=== PATIENT | male | born 1960 | race Caucasian/White ===

== ENCOUNTER 2020-02-16 11:46 | Emergency (ER) | payer BC, SELFPAY ==
--- NOTE | ~2020-02-16 | XR_ITS ---
EXAMINATION: XR chest 1V portable DATE: 02/16/2020 12:30 INDICATION: Shortness of breath. TECHNIQUE: A single frontal view of the chest was obtained. COMPARISON: Chest 2 views 08/17/2007, chest CT 10/01/2007 FINDINGS: A calcified left lung nodule is consistent with old granulomatous disease. No pleural effus ion or pneumothorax. The heart size is normal. IMPRESSION: 1. No acute cardiopulmonary disease. Reviewed, dictated and finalized at location A.
--- NOTE | ~2020-02-16 | CT_ITS ---
EXAMINATION: CT brain wo con DATE: 02/16/2020 13:17 INDICATION: Headache. TECHNIQUE: Computed tomography (CT) of the head was performed without intravenous contrast. The mA wa s adjusted according to patient size. Iterative reconstruction technique was employed. The dose-lengt h product was 605.33 mGy-cm. COMPARISON: Head CT 10/01/2007 FINDINGS: There is no intracranial hemorrhage, acute infarction, or abnormal intracranial mass lesion . The ventricles are normal in size. There are likely changes of ocular lens replacement surgeries. T here is mild mucosal thickening in the ethmoid sinuses. The mastoid air cells are normal. IMPRESSION: 1. Normal brain. Reviewed, dictated and finalized at location A. IMPRESSION: 1. Normal brain.
[2020-02-16 11:54] VITALS: BP 110/67; PULSE 81; RESP 14; TEMP 37.2; O2SAT 100
[2020-02-16 12:04] VITALS: PULSE 82
--- NOTE | 2020-02-16 12:04 | ECG_ITS ---
Measurements Intervals [place] Rate: 71 P: 74 WI: 135 QRS: 33 QRSD: 98 T: 32 QT: 381 QTc: 417 Interpretive Statements SINUS RHYTHM NORMAL ECG Electronically Signed On 02-16-2020 13:28:34 CDT by Richard Conteh D.O.
[2020-02-16 12:22] LABS: Basophils Percent Auto 0.4 % (0.2-1.2); Eosinophils Absolute Auto 0.1 K/mm3 (0-0.3); Hematocrit 35.9 % (42.0-52.0); Hemoglobin 11.6 g/dL (14.0-18.0); Immature Granulocyte Absolute 0.04 K/mm3 (0.00-0.031); Immature Granulocyte Percent A 0.4 % (0-0.5); Lymphocytes Absolute Auto 0.99 K/mm3 (0.9-3.2); Lymphocytes Percent Auto 9.2 % (18.3-44.2); Mean Corpuscular HGB Conc 32.3 g/dl (32-36); Mean Corpuscular Hemoglobin 29.7 pg (26-34); Mean Corpuscular Volume 92.1 fl (80-100); Monocytes Absolute Auto 1.2 K/mm3 (0.1-0.6); Monocytes Percent Auto 11.4 % (2.6-8.5); Neutrophils Absolute Auto 8.3 K/mm3 (1.3-6.7); Neutrophils Percent Auto 77.6 % (45.5-73.1); Platelet Count Result 479 k/mm3 (150-375); Red Cell Distribution Width 12.8 % (11.5-14.5); White Blood Count 10.7 K/mm3 (4.5-10.0)
[2020-02-16 12:34] LABS: Blood Urea Nitrogen 11 mg/dL (9-20); Calcium 8.7 mg/dL (8.4-10.2); Carbon Dioxide 30 mmol/L (22-30); Chloride 102 mmol/L (98-107); Estimated Glomerular Filt Rate > 60; Glucose 122 mg/dL (75-110); Potassium 4.1 mmol/L (3.4-5.0); Sodium 135 mmol/L (137-145)
[2020-02-16] MEDS: SODIUM CHLORIDE 0.9% IV 1,000 ML 999 ML IV CONT (12:43)
[2020-02-16 12:48] LABS: Alanine Aminotransferase 30 U/L (4-50); Albumin Level 3.2 g/dL (3.5-5.1); Alkaline Phosphatase 72 U/L (38-126); Aspartate Amino Transferase 32 U/L (17-59); Bilirubin,Total 0.3 mg/dL (0.2-1.3)
[2020-02-16] MEDS: KETOROLAC 30 MG/ML VIAL (*BKC) IV PUSH (13:06)
[2020-02-16 13:35] VITALS: BP 113/61; PULSE 65; RESP 22; O2SAT 95
--- NOTE | 2020-02-16 15:06 | ED.GENADULT ---
HPI - General Adult General Chief complaint: Shortness of Breath/Dyspnea Stated complaint: sick for 28 days , milan, fatigue, weakness Time Seen by Provider: 02/16/20 11:56 History of Present Illness HPI narrative: Patient is a 59-year-old male who comes to the ER with multiple issues. Over the last 28 days patient has had several elements have been managed in the outpatient setting. It originally started with several weeks of diarrhea. Brief course of ciprofloxacin which he did not tolerate. Stool studies were negative. He then developed several days of fever. He has not had a fever for the last 10 days. But he has been having bitemporal headache with 17 pound weight loss. He reports no edema to his lower extremities. Most notably over the last 3 days patient has developed a rash predominantly over his back as well as his right lower extremity and left second digit. RLE had large lumps that were red/hot that are starting to improve. Back with maculopapular rash with excoriations, no drainage. No oral lesions. Related Data Home Medications Medication Instructions Recorded Confirmed mometasone [Nasonex] INTRANASAL 02/16/20 Allergies Allergy/AdvReac Type Severity Reaction Status Date / Time No Known Allergies Allergy Unknown Verified 02/16/20 12:02 Review of Systems Review of Systems: All systems reviewed & are unremarkable except as noted in HPI and below Constitutional: Constitutional: Denies chills, Reports fever(s) and Reports weakness ENT: Denies dizziness, Denies nasal congestion and Denies sore throat Cardiovascular: Cardiovascular: Denies chest pain and Denies rapid heart rate Respiratory: Respiratory: Denies cough, Denies dyspnea and Denies wheezing Gastrointestinal: Gastrointestinal: Denies abdominal pain, Reports diarrhea, Denies nausea and Denies vomiting Musculoskeletal: Comments: Lower extremity edema PMFSH Past Medical History Medical History (Updated 02/16/20 @ 15:19 by Vick Christie MD) Lumbar spondylosis Obstructive sleep apnea (adult) (pediatric) Surgical History Surgical History (Updated 02/16/20 @ 15:14 by Vick Christie MD) No pertinent past surgical history Family History Family History (Updated 05/12/18 @ 09:36 by DOCTOR UNKNOWN) Mother Diabetes mellitus Family history of malignant neoplasm of breast in first degree relative Grandparent Family history of glaucoma Family history of cardiovascular disease Father Malignant neoplasm of prostate Other Family history of malignant neoplasm of breast Social History Social History Smoking status: Never smoker Alcohol intake: current Exam Narrative: Exam Narrative: GENERAL: Well-appearing, well-nourished, and in no acute distress. HEAD: Normocephalic, atraumatic. ENT: Mucous membranes moist. Normal posterior oropharynx. TMs normal bilaterally. NECK: Supple. CHEST: Clear to auscultation. No respiratory distress. HEART: Regular rate and rhythm. Normal peripheral pulses. ABDOMEN: Soft, nontender, nondistended. EXTREMITIES: Normal range of motion. Trace edema. SKIN: Warm, dry. 3 welts/nodules to the right lower leg below the knee laterally. Bruising appearance to them, no erythema. Back with maculopapular rash without cellulitis with some scabs over the rash were patient has been itching himself. There is one small area left finger where there appears to be a small nodule that is having the skin above it peeled off. No involvement of the palms and soles. NEURO: Alert and oriented x3. PSYCH: Normal mood and affect. Course Course Emergency Course: Patient informed of results. Suspect rash is related to a viral illness that he has had. We will test him for COVID and he has been instructed to stay home until he receives the test from his primary care physician. Should he be positive he is aware that he should home quarantine for [address] Zepeda informed of results and tx plan. Vital Signs Vit
[2020-02-16 15:12] VITALS: BP 115/51; PULSE 66; RESP 12; TEMP 37.1; O2SAT 99
--- NOTE | 2020-02-16 15:23 | PC.NURSE ---
COVID swab obtained and sent to the lab
[2020-02-17 11:48] LABS: SARS-CoV-2 RNA PCR Negative
== END 2020-02-16 15:42 | disposition home or self-care (01) ==
PROVIDERS: Emergency Provider Emergency Medicine; PCP Family Medicine
DX: B34.9 Viral infection, unspecified (principal); L52 Erythema nodosum; Z20.828 Contact with and (suspected) exposure to other viral communicable diseases; G47.33 Obstructive sleep apnea (adult) (pediatric); M47.816 Spondylosis without myelopathy or radiculopathy, lumbar region
CPT/HCPCS: 36415; 70450; 71045; 80048; 80076; 85025; 87081; 87635; 87880; 93005; 96374; 99284; J1885; J7030; U0003

== ENCOUNTER 2020-11-07 06:55 | Outpatient (NON) | payer BC, SELFPAY ==
[2020-11-07 19:42] LABS: SARS-CoV-2 RNA PCR Positive
== END 2020-11-07 06:56 ==
PROVIDERS: PCP Family Medicine; Visit Provider Family Medicine
DX: U07.1 COVID-19 (principal)
CPT/HCPCS: C9803; U0003

== ENCOUNTER → 2022-03-04 16:08 | Outpatient (CLI) | payer BC, SELFPAY ==
--- NOTE | ~2022-03-04 | XR_ITS ---
EXAMINATION: XR wrist LT min 3V DATE: 03/04/2022 16:52 INDICATION: Osteoarthritis with pain at the left first carpometacarpal joint TECHNIQUE: Posteroanterior, ulnar deviation, oblique, and lateral views of the left wrist were obtain ed. COMPARISON: none FINDINGS: Alignment is normal. No fracture. Polyarticular osteoarthritis, moderate severity at the first carpom etacarpal joint and mild at the triscaphe, distal radioulnar, midcarpal and first metacarpophalangeal joints. Soft tissues are unremarkable. IMPRESSION: 1. Polyarticular osteoarthritis at the left hand and wrist, moderate severity at the first carpometac arpal joint and otherwise mild. Reviewed, dictated and finalized at location A. IMPRESSION: 1. Polyarticular osteoarthritis at the left hand and wrist, moderate severity a t the first carpometacarpal joint and otherwise mild.
== END ==
PROVIDERS: PCP Family Medicine; Visit Provider Plastic Surgery
DX: M19.032 Primary osteoarthritis, left wrist (principal)
CPT/HCPCS: 73110

== ENCOUNTER → 2023-08-28 13:21 | Outpatient (CLI) | payer MEDICARE, OTHER, BC, SELFPAY ==
--- NOTE | ~2023-08-28 | MR_ITS ---
EXAMINATION: MR lumbar spine wo con DATE: 08/28/2023 14:06 INDICATION: Low back pain, unspecified. TECHNIQUE: Magnetic resonance imaging (MRI) of the lumbar spine was performed without intravenous con trast. Sequences included sagittal T2-weighted FSE, sagittal T2-weighted FS FSE, sagittal T1-weighted FSE, and axial T2-weighted FSE. COMPARISON: Lumbar spine MRI 04/17/2018 FINDINGS: There is 16 degrees levoscoliosis of lumbar spine. There is 3 mm retrolisthesis of L3 on L4 . There is mild chronic anterior wedging of T12 and L1 vertebral bodies. There are Schmorl's nodes at multiple levels. There is mildly decreased disc height at L1-L2 and L2-L3, severely decreased disc h eight at L3-L4, mildly decreased disc height at L4-L5 and L5-S1. The distal spinal cord signal intens ity is normal. The conus medullaris is at L1-L2. The following disc levels are specifically discussed : L1-L2: There is a central protrusion. There is severe bilateral facet joint osteoarthritis. There is no neural foraminal stenosis. There is mild central canal stenosis. L2-L3: The disc is bulging with superimposed left subarticular zone extrusion with 15 mm superior ext ension. There is severe bilateral facet joint osteoarthritis. There is mild bilateral neural foramina l stenosis. There is mild central canal stenosis. There is moderate stenosis of left lateral recess. L3-L4: The disc is bulging. There is severe bilateral facet joint osteoarthritis. There is moderate b ilateral neural foraminal stenosis. There is mild central canal stenosis. L4-L5: The disc is bulging. There is severe bilateral facet joint osteoarthritis. There is moderate b ilateral neural foraminal stenosis. There is mild central canal stenosis. L5-S1: The disc is bulging. There is severe bilateral facet joint osteoarthritis. There is mild right and moderate left neural foraminal stenosis. There is mild central canal stenosis. IMPRESSION: 1. Severe lumbar spondylosis, stable from 04/17/2018. 2. Lumbar levoscoliosis. Reviewed, dictated and finalized at location E.
== END ==
PROVIDERS: PCP Family Medicine; Visit Provider Family Medicine
DX: M47.816 Spondylosis without myelopathy or radiculopathy, lumbar region (principal); M41.9 Scoliosis, unspecified
CPT/HCPCS: 72148

== ENCOUNTER 2024-03-04 09:36 | Outpatient (CLI) | payer MEDICARE, OTHER, SELFPAY ==
[2024-03-04 19:06] LABS: Basophils Absolute Auto 0.1 K/mm3 (0.0-0.1); Eosinophils Absolute Auto 0.3 K/mm3 (0-0.3); Eosinophils Percent Auto 4.7 % (0-4.4); Hematocrit 37.8 % (42.0-52.0); Hemoglobin 11.8 g/dL (14.0-18.0); Immature Granulocyte Absolute 0.02 K/mm3 (0.00-0.031); Immature Granulocyte Percent A 0.3 % (0-0.5); Lymphocytes Absolute Auto 1.05 K/mm3 (0.9-3.2); Lymphocytes Percent Auto 14.8 % (18.3-44.2); Mean Corpuscular HGB Conc 31.2 g/dl (32-36); Mean Corpuscular Hemoglobin 28.7 pg (26-34); Mean Platelet Volume 10.1 fl (7.4-10.4); Monocytes Percent Auto 14.3 % (2.6-8.5); Neutrophils Absolute Auto 4.6 K/mm3 (1.3-6.7); Neutrophils Percent Auto 64.9 % (45.5-73.1); Platelet Count Result 348 k/mm3 (150-375); Red Blood Count 4.11 M/mm3 (4.6-6.20); Red Cell Distribution Width 13.9 % (11.5-14.5); White Blood Count 7.1 K/mm3 (4.5-10.0)
[2024-03-04 19:13] LABS: Alanine Aminotransferase 24 U/L (6-50); Albumin Level 3.9 g/dL (3.5-5.1); Alkaline Phosphatase 68 U/L (38-126); Anion Gap 6 mmol/L (4-12); Aspartate Amino Transferase 31 U/L (17-59); Bilirubin,Total 0.5 mg/dL (0.2-1.3); Blood Urea Nitrogen 19 mg/dL (9-20); Calcium 9.2 mg/dL (8.4-10.2); Carbon Dioxide 28 mmol/L (22-30); Chloride 105 mmol/L (98-107); Estimated Glomerular Filt Rate > 60; Glucose 103 mg/dL (65-110); Potassium 4.1 mmol/L (3.4-5.0); Sodium 139 mmol/L (137-145)
[2024-03-04 19:44] LABS: Prostate Specific Antigen 2.3 ng/mL (< OR = 4.0)
== END 2024-03-04 09:37 | disposition home or self-care (01) ==
PROVIDERS: PCP Family Medicine; Visit Provider Family Medicine
DX: Z12.5 Encounter for screening for malignant neoplasm of prostate (principal); R10.9 Unspecified abdominal pain
CPT/HCPCS: 36415; 80053; 84153; 85025; G0103

== ENCOUNTER 2024-03-05 08:41 | Outpatient (CLI) | payer MEDICARE, OTHER, SELFPAY ==
[2024-03-10 18:24] LABS: Calprotectin, Stool 5580 mcg/g
== END 2024-03-05 08:42 | disposition home or self-care (01) ==
LOC: ANHLAB 08:42
PROVIDERS: PCP Family Medicine; Visit Provider Family Medicine
DX: R10.9 Unspecified abdominal pain (principal); Z12.5 Encounter for screening for malignant neoplasm of prostate
CPT/HCPCS: 83993

== ENCOUNTER 2024-03-08 10:30 | Outpatient (CLI) | payer MEDICARE, OTHER, SELFPAY ==
--- NOTE | ~2024-03-08 | CT_ITS ---
Non-contrast CT scan of the Abdomen and Pelvis Clinical indication: Abdominal pain Technique: 2.5 mm axial scans were obtained through the abdomen and pelvis without intravenous or or al contrast. Dose reduction technique was used on this scan by utilizing automated exposure control a nd iterative reconstruction technique. The dose-length product (DLP) was 918.07 mGy-cm. Findings: Images through the lung bases reveal no abnormalities. There is no evidence of renal or ureteral calculi. The kidneys and the ureters are nondilated. Suspected subtle 2.8 cm hypodense mass in the anterior left hepatic lobe (axial image 32). The spleen , pancreas, gallbladder, and adrenals appear normal. There are atherosclerotic calcifications of the aorta.. There is no evidence of bowel obstruction. There is probable mild wall thickening of the ascending an d transverse colon with large amount of stool present throughout the large bowel. Multiple shotty per icolonic lymph nodes are present.. Images through the pelvis were performed. There is no evidence of ascites or lymphadenopathy. Urinary bladder unremarkable. No pelvic mass seen. Impression: Probable 2.8 cm left hepatic lobe mass, indeterminate. Follow-up pre and postcontrast hepatic MR rosita mmended to further evaluate. Mild wall thickening of ascending and transverse colon with shotty pericolonic lymph nodes. Correlate for infectious/inflammatory colitis. Large amount of stool throughout large bowel suggests constipation. Reviewed, dictated and finalized at [facility]. Impression: Probable 2.8 cm left hepatic lobe mass, indeterminate. Follow-up pre and postco ntrast hepatic MR recommended to further evaluate. Mild wall thickening of ascending and transverse colon with shotty pericolonic lymph nodes. Correlate for infectious/inflammatory colitis. Large amount of stool throughout large bowel suggests constipation.
== END 2024-03-08 10:31 ==
LOC: GOSHIMG 10:32
PROVIDERS: PCP Family Medicine; Visit Provider Family Medicine
DX: R10.31 Right lower quadrant pain (principal)
CPT/HCPCS: 74176

== ENCOUNTER 2024-03-11 16:38 | Outpatient (CLI) | payer MEDICARE, BC, SELFPAY ==
--- NOTE | ~2024-03-11 | MR_ITS ---
EXAMINATION: MR abdomen wo/w con DATE: 03/11/2024 17:39 INDICATION: Liver mass. TECHNIQUE: Magnetic resonance imaging (MRI) of the abdomen was performed without and with 17 mL Multi Ho intravenous contrast. COMPARISON: CT abdomen and pelvis 03/08/2024, 11/21/2012 FINDINGS: In the left hepatic lobe, there is a 3.2 cm enhancing mass. The gallbladder, spleen, pancreas, adrena l glands, and kidneys are normal. There are no dilated loops of bowel. There is an umbilical hernia c ontaining fat. There are no pathologically enlarged lymph nodes. There is no ascites. IMPRESSION: 1. 3.2 cm liver mass, new from 11/21/2012, suspicious for metastatic disease. Ultrasound-guided core n eedle biopsy is recommended. Reviewed, dictated and finalized at location A. IMPRESSION: 1. 3.2 cm liver mass, new from 11/21/2012, suspicious for metastatic disease. Ul trasound-guided core needle biopsy is recommended.
== END 2024-03-11 16:39 | disposition home or self-care (01) ==
LOC: ANHIMG 16:39
PROVIDERS: PCP Family Medicine; Visit Provider Family Medicine
DX: R16.0 Hepatomegaly, not elsewhere classified (principal)
CPT/HCPCS: 74183; A9577

== ENCOUNTER 2024-03-31 07:30 | Outpatient (CLI) | payer MEDICARE, OTHER, BC, SELFPAY ==
[2024-03-31] VITALS (10 sets, daily range): BP systolic 106–117; BP diastolic 68–85; PULSE 51–58; RESP 16; TEMP 36.6; O2SAT 97–100
--- NOTE | ~2024-03-31 | US_ITS ---
EXAMINATION: US biopsy liver DATE: 03/31/2024 10:05 INDICATION: Liver mass. TECHNIQUE: The procedure including the risks, benefits, and alternatives was discussed with the patie nt. Risks discussed included bleeding and infection. The patient understood the risks and agreed to p roceed. The skin overlying the left hepatic lobe was prepped and draped in usual sterile fashion. An esthetic was administered with 1% lidocaine subcutaneously. An 18 gauge core biopsy needle was then used to obtain 3 core biopsy specimens under continuous sonographic guidance. The entry site was elisabet ana paula and dressed. There were no immediate complications. FINDINGS: Ultrasound images demonstrate the needle in a 3.2 cm mass in left hepatic lobe. IMPRESSION: 1. Ultrasound-guided core needle biopsy a liver mass. Reviewed, dictated and finalized at location A.
[2024-03-31 08:40] LABS: Platelet Count Result 254 k/mm3 (150-375)
[2024-03-31 09:00] LABS: Prothrombin Time 13.3 Seconds (11.1-14.7)
== END 2024-03-31 13:52 | disposition home or self-care (01) ==
PROVIDERS: PCP Family Medicine; Referring Provider Family Medicine; Visit Provider Radiology Diagnostic Radiology
PROC: BF45ZZZ Ultrasonography of Liver (ICD-10-PCS; CPT 47000; principal; 2024-03-31 09:30)
DX: R16.0 Hepatomegaly, not elsewhere classified (principal)
CPT/HCPCS: 36415; 47000; 76942; 85049; 85610; 88307; 88342

== ENCOUNTER 2024-04-26 01:06 | Day surgery (SDC) | payer MEDICARE, BC, OTHER, SELFPAY ==
[2024-04-08 11:33] VITALS: BMI 27.3
--- NOTE | 2024-04-26 12:40 | WPDANESEPPF ---
Anes - Initial Pre Proc Eval Procedure: Operation Date: 04/26/24 14:00 Proposed Procedures p Colonoscopy - Avinash Blanchard MD Date/Time: 04/26/24 12:40 Surgeon: Avinash Blanchard MD Pre Op Diagnosis: Abnormal imaging of digestive tract Patient Data Age: 64 Gender: M Height: 1.8 m Weight: 89 kg Allergies Allergy/AdvReac Type Severity Reaction Status Date / Time No Known Allergies Allergy Unknown Verified 04/26/24 12:44 Home Medications Medication Instructions Recorded Confirmed Type ekwvonod-[id number] 300 mcg-K 60 1 tablet PO DAILY 12/12/22 04/26/24 History mcg-lycop 600 mcg-lutein 300 mcg tablet (Centrum Silver Men) turmeric 100 mg-eneida 150 1 cap PO DAILY 12/12/22 04/26/24 History mg-olive 50 mg-oreg 150 mg-capryl capsule psyllium seed (sugar) oral powder 1 tbsp PO DAILY 03/11/24 04/26/24 History (Metamucil (sugar) oral powder) Glucosamine 04/08/24 History Patient hx anesthesia problems: none Family hx anesthesia problems: none Results Review: All pre-operative results and documents have been reviewed as part of the pre-operative evaluation. [facility] Past Medical History Medical History Actinic keratoses Deviated nasal septum Lumbar spondylosis Obstructive sleep apnea (adult) (pediatric) Ureteral stone Vision changes Surgical History Surgical History H/O eye surgery (~2015) Torn retina 2016 right eye Both eye lens replaced in 2017 History of lumbosacral spine surgery (~2018) History of nasal septoplasty (~1977) History of right inguinal hernia repair (~2014) History of tonsillectomy (~1967) Status post surgical removal of malignant neoplasm of skin (~2016) Family History Family History Mother Diabetes mellitus Family history of malignant neoplasm of breast in first degree relative Grandparent Family history of glaucoma Family history of cardiovascular disease Father Malignant neoplasm of prostate Other Family history of malignant neoplasm of breast Social History Social History Smoking status: Never smoker Alcohol intake: current Substance use: never Substance use type: does not use Lack of Transportation: No Lack of Food: Never True Current Housing: I Have Housing Concerned About Future Housing: No Difficulty Paying Gas/Electric Bills: No Difficulty Paying for Meds: No Currently Unemployed: No Education: Associate Degree Difficulty w/ Childcare or Family Care: No Living arrangements: with family Additional living arrangements comments: Spouse Occupation/Education: occupation Gender identity (if verbalized by the patient): Male Sexual Orientation (if Verbalized by the Patient): Straight or Heterosexual Spiritual care concerns: No Anes - Eval Final PreProcedure Day of Procedure 04/26/24 12:40 Patient weight: normal Heart: regular rate and rhythm Lungs: clear to auscultation Airway: Mallampati scale class II Neurological: alert and oriented Last oral intake: >/= 8 hours ASA classification: II Emergent: no Anesthetic plan: proceed Anesthesia type and monitoring: general GIVS and standard monitoring Results Review: All pre-operative results and documents have been reviewed as part of the pre-operative evaluation. Suspect EM, pt has abnormality on CT w liver mass, now for colonoscopy. Informed Consent: The patient's anesthetic plan and its attendant risks and benefits were discussed with the patient/family/POA. Questions were solicited and answers provided to the satisfaction of the patient/family/POA.
[2024-04-26 12:45] VITALS: BP 113/64; PULSE 52; RESP 16; TEMP 36.6; O2SAT 99; BMI 26.5
[2024-04-26] MEDS: LACTATED RINGERS 1,000 ML 150 ML IV CONT (12:55)
--- NOTE | 2024-04-26 13:30 | PM.HPGS ---
History of Present Illness History of Present Illness Consent: Risks, benefits, and alternatives have been discussed and questions answered. Patient agrees to proceed with procedure. Chief complaint: Abnormal imaging of digestive tract Narrative: Lino New is a 64 year old male with new diagnosis of adenocarcinoma in liver after abnormal MRI liver (probably metastatic), last colonoscopy 2013 Review of Systems Review of Systems: All systems reviewed & are unremarkable except as noted in HPI and below PMFSH Past Medical History Medical History Actinic keratoses Deviated nasal septum Lumbar spondylosis Obstructive sleep apnea (adult) (pediatric) Ureteral stone Vision changes Surgical History Surgical History H/O eye surgery (~2015) Torn retina 2015 right eye Both eye lens replaced in 2016 History of lumbosacral spine surgery (~2017) History of nasal septoplasty (~1977) History of right inguinal hernia repair (~2014) History of tonsillectomy (~1967) Status post surgical removal of malignant neoplasm of skin (~2016) Family History Family History Mother Diabetes mellitus Family history of malignant neoplasm of breast in first degree relative Grandparent Family history of glaucoma Family history of cardiovascular disease Father Malignant neoplasm of prostate Other Family history of malignant neoplasm of breast Social History Social History Smoking status: Never smoker Alcohol intake: current Substance use: never Substance use type: does not use Lack of Transportation: No Lack of Food: Never True Current Housing: I Have Housing Concerned About Future Housing: No Difficulty Paying Gas/Electric Bills: No Difficulty Paying for Meds: No Currently Unemployed: No Education: Associate Degree Difficulty w/ Childcare or Family Care: No Living arrangements: with family Additional living arrangements comments: Spouse Occupation/Education: occupation Gender identity (if verbalized by the patient): Male Sexual Orientation (if Verbalized by the Patient): Straight or Heterosexual Spiritual care concerns: No Meds Home Medications and Allergies Home Medications Medication Instructions Recorded Confirmed Type nvkmadzf-qe-hyygf 300 mcg-K 60 1 tablet PO DAILY 12/12/22 04/26/24 History mcg-lycop 600 mcg-lutein 300 mcg tablet (Centrum Silver Men) turmeric 100 mg-eneida 150 1 cap PO DAILY 12/12/22 04/26/24 History mg-olive 50 mg-oreg 150 mg-capryl capsule psyllium seed (sugar) oral powder 1 tbsp PO DAILY 03/11/24 04/26/24 History (Metamucil (sugar) oral powder) Glucosamine 04/08/24 History Allergies Allergy/AdvReac Type Severity Reaction Status Date / Time No Known Allergies Allergy Unknown Verified 04/26/24 12:44 Vital Signs Vital Signs - 24 hr 04/26/24 12:45 Temperature 97.8 F Pulse Rate 52 L Respiratory Rate 16 Blood Pressure 113/64 Pulse Oximetry 99 Oxygen Delivery Room Air Exam Const: General: comfortable and no acute distress HENMT: Face/Nose/Sinus: Normal nares present Eyes: General: appearance normal, both eyes and all related structures Neck: Neck: no JVD Resp: Auscultation: clear to auscultation bilaterally Cardio: Rate: regular rate Rhythm: regular rhythm GI: Inspection: non-distended GI Palp: Yes Soft to palpation Skin: General skin exam: normal color Neuro: General: gait normal Speech: normal speech Extrem: General: normal to inspection Psych: Mental Status: mental status grossly normal Assessment and Plan Assessment and plan (1) Metastatic adenocarcinoma to liver: Code(s): C78.7 - Secondary malignant neoplasm of liver and intrahepatic bile duct
[2024-04-26 13:50] VITALS: BP 101/61; PULSE 60; RESP 12; O2SAT 97
[2024-04-26 14:00] VITALS: BP 101/57; PULSE 54; RESP 14; O2SAT 97
[2024-04-26 14:11] VITALS: BP 107/65; PULSE 63; RESP 19; O2SAT 98
== END 2024-04-26 14:31 | disposition home or self-care (01) ==
PROVIDERS: PCP Family Medicine; Visit Provider Internal Medicine Gastroenterology
PROC: 0DJD8ZZ Inspection of Lower Intestinal Tract, Via Natural or Artificial Opening Endoscopic (ICD-10-PCS; CPT 45378; principal; 2024-04-26 14:00)
DX: K51.90 Ulcerative colitis, unspecified, without complications (principal); K64.8 Other hemorrhoids; C78.7 Secondary malignant neoplasm of liver and intrahepatic bile duct; G47.33 Obstructive sleep apnea (adult) (pediatric)
CPT/HCPCS: 45380; 88305; J2704; J7120